=== PATIENT | male | born 1975 | race American Indian/Alaskan Native ===

== ENCOUNTER 2016-09-10 22:30 | Emergency (ER) | payer MEDICAID ==
[2016-09-10 23:27] VITALS: BP 144/83
--- NOTE | 2016-09-11 01:10 | Emergency Department Report ---
ED Anxiety HPI - General Chief Complaint: Anxiety Stated Complaint: ANXIETY Time Seen by Provider: 09/11/16 00:54 Source: patient, EMS Mode of arrival: Ambulatory - History of Present Illness Initial Comments: Patient comes into the ER tonight with complaints of "having a flareup of his 2 diagnoses". Patient states that he has psychosis and bipolar and that he had an episode with his family today that caused him to have a flareup of his symptoms. Upon asking the patient what symptoms he is referring to, patient unable to explain to me what those symptoms were. Patient also mentions that he has been out of his Zoloft and Risperdal for the past 2 days and is asking for refill of such. Patient does mention that his mother was walking in the street today acting all crazy and that he gave them the keys to his car and he walked away. Patient states that he had to get away from them. Patient denies any homicidal or suicidal thoughts. - Related Data Home Medications: Previous Rx's Medication Instructions Recorded Last Taken Type Sertraline [Zoloft] 25 mg PO QDAY #30 tab 09/11/16 Unknown Rx risperiDONE [RisperDAL] 2 mg PO QDAY #30 09/11/16 Unknown Rx Allergies/Adverse Reactions: Allergies Allergy/AdvReac Type Severity Reaction Status Date / Time No Known Allergies Allergy Verified 09/27/15 05:44 ED Review of Systems ROS: Stated complaint: ANXIETY Other details as noted in HPI Constitutional: denies: chills, fever Eyes: denies: eye pain, eye discharge, vision change ENT: denies: ear pain, throat pain Respiratory: denies: cough, shortness of breath, wheezing Cardiovascular: denies: chest pain, palpitations Endocrine: no symptoms reported Gastrointestinal: denies: abdominal pain, nausea, diarrhea Genitourinary: denies: urgency, dysuria Musculoskeletal: denies: back pain, joint swelling, arthralgia Skin: denies: rash, lesions Neurological: denies: headache, weakness, paresthesias Psychiatric: anxiety. denies: depression, auditory hallucinations, visual hallucinations, homicidal thoughts, suicidal thoughts Hematological/Lymphatic: denies: easy bleeding, easy bruising ED Past Medical Hx - Past Medical History Hx Psychiatric Treatment: Yes (bipolar, psychotic disorder) Additional medical history: gout - Social History Smoking Status: Current Every Day Smoker Substance Use Type: None - Medications Home Medications: Home Medications Medication Instructions Recorded Confirmed Last Taken Type Sertraline [Zoloft] 25 mg PO QDAY #30 tab 09/11/16 Unknown Rx risperiDONE [RisperDAL] 2 mg PO QDAY #30 09/11/16 09/11/16 Unknown Rx ED Physical Exam - General Limitations: No Limitations General appearance: alert, in no apparent distress - Head Head exam: Present: atraumatic, normocephalic - Eye Eye exam: Present: normal appearance - ENT ENT exam: Present: mucous membranes moist - Neck Neck exam: Present: normal inspection - Respiratory Respiratory exam: Present: normal lung sounds bilaterally. Absent: respiratory distress - Cardiovascular Cardiovascular Exam: Present: regular rate, normal rhythm. Absent: systolic murmur, diastolic murmur, rubs, gallop - GI/Abdominal GI/Abdominal exam: Present: soft, normal bowel sounds - Rectal Rectal exam: Present: deferred - Extremities Exam Extremities exam: Present: normal inspection - Back Exam Back exam: Present: normal inspection - Neurological Exam Neurological exam: Present: alert, oriented X3, CN II-XII intact, normal gait, reflexes normal. Absent: motor sensory deficit - Psychiatric Psychiatric exam: Present: normal affect, normal mood. Absent: depressed, agitated, flat affect, manic, homicidal ideation, suicidal ideation - Skin Skin exam: Present: warm, dry, intact, normal color. Absent: rash ED Course Vital Signs 09/10/16 23:05 Temperature 98.4 F Pulse Rate 98 H Respiratory 20 Rate Blood Pressure 144/83 O2 Sat by Pulse 95 Oximetry ED Medical Decision Making - Medical Decision Making Patient is nontoxic and hemodynamically stable. Patient adamantly denies any homicidal or suicidal ideations. After spending some time allowing patient to speak freely in the room I believe patient is primarily over requesting a refill of his medications. Patient unable to explain or express to me what symptoms he was having earlier. After hearing stories o the triage staff on how he checked in, I have some suspicion towards patient only being here so that he could obtain a ride from [facility] back home. I will refill his medications and he is to follow back up with his previously prescribing physician. Patient is stable for discharge and is agreement with treatment plan. Critical care attestation.: If time is entered above; I have spent that time in minutes in the direct care of this critically ill patient, excluding procedure time. ED Disposition Clinical Impression: History of bipolar disorder, History of psychosis, Medication refill Disposition: DISCHARGED TO HOME OR SELFCARE Is pt being admited?: No Does the pt Need Aspirin: No Condition: Stable Instructions: Bipolar Disorder (ED), Brief Psychotic Disorder (ED) Prescriptions: Sertraline [Zoloft] 25 mg PO QDAY #30 tab Referrals: PRIMARY CARE, [Primary Care Provider] - 3-5 Days Time of Disposition: 01:12
== END 2016-09-11 01:41 | disposition home or self-care (01) ==
LOC: ED 22:30
DX: Z76.0 Encounter for issue of repeat prescription (principal); F31.9 Bipolar disorder, unspecified; F29 Unspecified psychosis not due to a substance or known physiological condition; M10.9 Gout, unspecified; F17.200 Nicotine dependence, unspecified, uncomplicated
CPT/HCPCS: 99283